=== PATIENT | female | born 1945 | race Caucasian/White ===

== ENCOUNTER → 2019-11-17 | Outpatient (CLI) | payer MEDICARE, BC ==
[~2019-11-17] MED LIST: ALBU6.7H8 INH; ASCO500T8 PO; ASPI-496 PO; ATOR40TA78 PO; CALC1CAP8 PO; CHLO25TA PO; CYCL-259 PO; DILT240C80 PO; DULO60CA7 PO; ESTR1TAB15 PO; FLUT15.87 NS; FOLI0.8T2 PO; GLUC1CAP50 PO; GUAI-103 PO; HYDR-36 PO; HYDR25TA6 PO; LACT1CAP13 PO; LISI40TA PO; METO-95 PO; NABU750T PO; PANT40TA3 PO; POLY17PO5 PO; SIMV20TA19 PO; SPIR50TA4 PO; Vita Fusion PO
[2019-11-17 13:13] LABS: BASOPHILS # (AUTO) 0.02 x10^3/uL (0-0.1); BASOPHILS % (AUTO) 0 % (0-1); EOSINOPHILS # (AUTO) 0.05 x10^3/uL (0-0.4); EOSINOPHILS % (AUTO) 1 % (1-7); LYMPHOCYTES # (AUTO) 1.06 x10^3/uL (1-3.4); LYMPHOCYTES % (AUTO) 17 % (22-44); MD NO; MEAN CORPUSCULAR HEMOGLOBIN 31.3 pg (27.0-34.8); MEAN CORPUSCULAR HGB CONC 33.1 g/dL (32.4-35.8); MEAN CORPUSCULAR VOLUME 94.7 fL (80-100); MEAN PLATELET VOLUME 7.7 fL (7.4-10.4); MONOCYTES # (AUTO) 0.51 x10^3/uL (0.2-0.8); MONOCYTES % (AUTO) 8 % (2-9); NEUTROPHILS # (AUTO) 4.75 x10^3/uL (1.8-6.8); NEUTROPHILS % (AUTO) 74 % (42-75); PLATELET COUNT 181 x10^3/uL (130-400); RED BLOOD COUNT 4.17 x10^6/uL (3.82-5.3); RED CELL DISTRIBUTION WIDTH 13.3 % (9.6-15.2)
[2019-11-17 13:22] LABS: ALANINE AMINOTRANSFERASE 24 U/L (12-78); ALBUMIN 3.8 g/dL (3.4-5.0); ANION GAP 8 mmol/L (5-15); CALCIUM 8.9 mg/dL (8.5-10.1); CHLORIDE 100 mmol/L (98-107)
[2019-11-17 13:24] LABS: ALKALINE PHOSPHATASE 63 U/L (45-117); BILIRUBIN,TOTAL 0.7 mg/dL (0.2-1.0)
== END | disposition home or self-care (01) ==
LOC: STAR 11:57
PROVIDERS: ATTEND Orthopaedic Surgery
DX: Z01.818 Encounter for other preprocedural examination (principal); S72.041D Displaced fracture of base of neck of right femur, subsequent encounter for closed fracture with routine healing; M25.551 Pain in right hip; M25.552 Pain in left hip; M16.12 Unilateral primary osteoarthritis, left hip; M21.751 Unequal limb length (acquired), right femur; Z47.1 Aftercare following joint replacement surgery; M25.561 Pain in right knee; Z96.651 Presence of right artificial knee joint; Z98.890 Other specified postprocedural states; M67.432 Ganglion, left wrist; X58.XXXD Exposure to other specified factors, subsequent encounter
CPT/HCPCS: 36415; 80053; 85025; 87081

== ENCOUNTER 2019-11-23 07:30 | Observation (INO) | payer MEDICARE, BC ==
[~2019-11-23] VITALS: Ht 170.2 cm; Wt 65.3 kg
[~2019-11-23 07:30] MED LIST changes: +EPINEPHRINE 1 MG/ML, 1ML ONE; +KETOROLAC 60 MG/2 ML ONE; +ROPIvacaine/PF 0.2%, 20 ML ONE; +SODIUM CHLORIDE 0.9% 50 ML ONE; +TRANEXAMIC ACID 100 MG/ML, 10ML ONE; +VANCOMYCIN 1,000 MG ONE
[2019-11-23] MEDS ORDERED: FENTANYL PF 250 MCG/5ML ONE (09:27)
[2019-11-23] MEDS ORDERED: MIDAZOLAM 1 MG/ML, 2ML ONE (09:27)
[2019-11-23] MEDS ORDERED: CEFAZOLIN 1,000 MG ONE (09:38)
[2019-11-23] MEDS ORDERED: PROPOFOL 10 MG/ML, 20ML ONE (09:38)
[2019-11-23] MEDS ORDERED: ROCURONIUM 10MG/ML,5ML ONE (09:38)
[2019-11-23] MEDS ORDERED: SUGAMMADEX 200 MG/2 ML IVPush ONE (09:38)
[2019-11-23] MEDS ORDERED: ONDANSETRON 2MG/ML, 2ML ONE (09:38)
[2019-11-23] MEDS ORDERED: LIDOCAINE-MPF 2% ,5ML ONE (09:38)
[2019-11-23] MEDS ORDERED: DEXAMETHASONE 4 MG/ML, 1ML ONE (09:38)
[2019-11-23] MEDS ORDERED: VANCOMYCIN PER PHARMACY MC ONE (10:13)
[2019-11-23 10:25] VITALS: BP 106/72
[2019-11-23] MEDS ORDERED: LACTATED RINGERS 1,000 ML IV STA (10:25)
[2019-11-23] MEDS ORDERED: VANCOMYCIN 1,300 MG in SODIUM CHLORIDE 0.9% 250 ML IV ONE (10:30)
[2019-11-23] MEDS ORDERED: PHENYLEPHRINE 10 MG/ML ONE (11:31)
[2019-11-23] MEDS ORDERED: PROPOFOL 50 ML ONE (11:54)
[2019-11-23] MEDS ORDERED: LACTATED RINGERS 1,000 ML IV SCH (12:00)
[2019-11-23] MEDS ORDERED: MEPERIDINE/PF 50 MG/ML ONE (12:41)
[2019-11-23] MEDS ORDERED: DIAZEPAM 5 MG TABLET PO PRN (13:30)
[2019-11-23] MEDS ORDERED: ONDANSETRON 2MG/ML, 2ML IV PRN (13:30)
[2019-11-23] MEDS ORDERED: ALBUTEROL/IPRATROPIUM 2.5MG/0.5MG, 3 ML NPPB PRN (13:30)
[2019-11-23] MEDS ORDERED: MAGNESIUM HYDROXIDE 8%, 30ML UDC PO PRN (13:30)
[2019-11-23] MEDS ORDERED: HYDROcodone/APAP 7.5-325MG/15ML UDC PO PRN (13:30)
[2019-11-23] MEDS ORDERED: ACETAMINOPHEN 325 MG TABLET PO PRN (13:30)
[2019-11-23] MEDS ORDERED: DEXAMETHASONE 4 MG/ML, 1ML IVPush SCH (13:30)
[2019-11-23] MEDS ORDERED: CYCLOBENZAPRINE 10 MG TABLET PO PRN (13:30)
[2019-11-23] MEDS ORDERED: ONDANSETRON 4 MG TABLET PO PRN (13:30)
[2019-11-23] MEDS ORDERED: HALOPERIDOL 5 MG/ML IV PRN (13:30)
[2019-11-23] MEDS ORDERED: HYDROmorphone 2 MG/ML, 1ML IVPush PRN (13:30)
[2019-11-23] MEDS ORDERED: ALUMINUM/MAG/SIMETHICONE 30 ML UDC PO PRN (13:30)
[2019-11-23] MEDS ORDERED: POLYETHYLENE GLYCOL 17 GM PACKET PO PRN (13:30)
[2019-11-23] MEDS ORDERED: DIPHENHYDRAMINE 25 MG CAPSULE PO PRN (13:30)
[2019-11-23] MEDS ORDERED: MEPERIDINE/PF 25MG/ML,1ML IVPush PRN (13:30)
[2019-11-23] MEDS ORDERED: BISACODYL 10 MG SUPP PR PRN (13:30)
[2019-11-23] MEDS ORDERED: HYDROmorphone 1 MG/ML, 1ML INJ IVPush PRN (13:30)
[2019-11-23] MEDS ORDERED: SENNA/DOCUSATE TABLET PO PRN (13:30)
[2019-11-23] MEDS ORDERED: hydrALAzine 20 MG/ML, 1ML IV PRN (13:30)
[2019-11-23] MEDS ORDERED: PROMETHAZINE 12.5 MG SUPP PR PRN (13:30)
[2019-11-23] MEDS ORDERED: PSYLLIUM PACKET PO PRN (13:30)
[2019-11-23] MEDS ORDERED: FENTANYL PF 100 MCG/2ML ONE (13:51)
[2019-11-23] MEDS ORDERED: HYDROcodone/APAP 7.5-325MG/15ML UDC ONE (13:52)
[2019-11-23] MEDS ORDERED: TRANEXAMIC ACID 1,000 MG in SODIUM CHLORIDE 0.9% 100 ML IVPB ONE (14:00)
[2019-11-23] MEDS: FENTANYL PF 100 MCG/2ML IV PRN ×3 (14:03→14:34)
[2019-11-23] MEDS: D5%-0.45% NACL 1,000 ML IV SCH (15:38)
[2019-11-23] MEDS: ACETAMINOPHEN 500 MG TABLET PO SCH ×2 (15:38→21:30)
[2019-11-23] MEDS: FERROUS SULFATE 325 MG TABLET PO SCH (18:13)
[2019-11-23] MEDS: CALCIUM/VITAMIN D3 250-125 TABLET PO SCH (18:13)
[2019-11-23] MEDS: ASPIRIN 81 MG TABLET EC PO SCH (19:02)
[2019-11-23 19:44] VITALS: BP 93/59
[2019-11-23] MEDS: KETOROLAC 30 MG/1 ML IV SCH (19:57)
[2019-11-23] MEDS: CEFAZOLIN PMX 2GM/50ML 50 ML IVPB SCH (19:58)
[2019-11-23] MEDS: DOCUSATE 100 MG CAPSULE PO SCH (19:58)
[2019-11-23] MEDS: HYDROcodone/APAP 10/325 MG TABLET PO PRN (20:21)
[2019-11-23] MEDS ORDERED: ATORVASTATIN 40 MG TABLET PO SCH (21:00)
[2019-11-23 23:27] VITALS: BP 92/58
[2019-11-24] MEDS: HYDROcodone/APAP 10/325 MG TABLET PO PRN ×3 (00:38→12:40)
[2019-11-24] MEDS: ACETAMINOPHEN 500 MG TABLET PO SCH ×2 (03:30→08:52)
[2019-11-24 03:51] VITALS: BP 95/53
[2019-11-24] MEDS: KETOROLAC 30 MG/1 ML IV SCH ×2 (04:19→12:00)
[2019-11-24] MEDS: CEFAZOLIN PMX 2GM/50ML 50 ML IVPB SCH (04:19)
[2019-11-24] MEDS: D5%-0.45% NACL 1,000 ML IV SCH (04:50)
[2019-11-24] MEDS: ASPIRIN 81 MG TABLET EC PO SCH (06:04)
[2019-11-24 07:38] VITALS: BP 77/49
[2019-11-24 08:50] VITALS: BP 86/51
[2019-11-24] MEDS: FERROUS SULFATE 325 MG TABLET PO SCH (08:51)
[2019-11-24] MEDS: DOCUSATE 100 MG CAPSULE PO SCH (08:53)
[2019-11-24] MEDS: CALCIUM/VITAMIN D3 250-125 TABLET PO SCH ×2 (08:53→12:00)
[2019-11-24] MEDS ORDERED: LISINOPRIL 40 MG TABLET PO SCH (09:00)
[2019-11-24] MEDS ORDERED: PANTOPROZOLE 40MG TABLET PO SCH (09:00)
[2019-11-24] MEDS ORDERED: DULOXETINE 30 MG CAPSULE.DR PO SCH (09:00)
[2019-11-24] MEDS ORDERED: METOPROLOL SUCCINATE 100 MG TAB.ER.24H PO SCH (09:00)
[2019-11-24] MEDS ORDERED: MULTIVITAMINS/MINERALS TABLET PO SCH (09:00)
[2019-11-24] MEDS ORDERED: ASCORBIC ACID 500 MG TABLET PO SCH (09:00)
[2019-11-24] MEDS ORDERED: SPIRONOLACTONE 50 MG TABLET PO SCH (09:00)
[2019-11-24 10:58] VITALS: BP 94/60
[2019-11-24 11:51] VITALS: BP 107/70
== END 2019-11-24 13:00 | disposition home or self-care (01) ==
LOC: EDSTATUS 07:30 → INTOOBSV 09:47 → ORIP 09:47 → 4NE 14:57 → DCLOUNGE 11-24 12:48
PROVIDERS: ADMIT Orthopaedic Surgery; ATTEND Orthopaedic Surgery
DX: M16.11 Unilateral primary osteoarthritis, right hip (principal); M87.9 Osteonecrosis, unspecified; M84.451A Pathological fracture, right femur, initial encounter for fracture; M48.00 Spinal stenosis, site unspecified; K21.9 Gastro-esophageal reflux disease without esophagitis; I10 Essential (primary) hypertension; J44.9 Chronic obstructive pulmonary disease, unspecified; F17.200 Nicotine dependence, unspecified, uncomplicated; Z98.890 Other specified postprocedural states; Z79.899 Other long term (current) drug therapy
CPT/HCPCS: 20680; 27130; 36415; 72170; 85014; 85018; 86850; 86900; 96365; 96366; 96375; 96376; 97162; 97166; C1713; C1776; G0378; J0171; J0690; J1100; J1885; J2175; J2250; J2370; J2405; J2704; J2795; J3010; J3370; J3490; J7050; J7120

== ENCOUNTER → 2020-04-14 | Outpatient (CLI) | payer MEDICARE, BC ==
[~2020-04-14] MED LIST changes: -EPINEPHRINE 1 MG/ML, 1ML ONE; +HYDR-3246 PO; -HYDR-36 PO; -KETOROLAC 60 MG/2 ML ONE; +PRIM50TA34 PO; -ROPIvacaine/PF 0.2%, 20 ML ONE; -SODIUM CHLORIDE 0.9% 50 ML ONE; -TRANEXAMIC ACID 100 MG/ML, 10ML ONE; -VANCOMYCIN 1,000 MG ONE
[2020-04-14 14:02] LABS: BASOPHILS # (AUTO) 0.01 x10^3/uL (0-0.1); BASOPHILS % (AUTO) 0 % (0-1); EOSINOPHILS # (AUTO) 0.13 x10^3/uL (0-0.4); EOSINOPHILS % (AUTO) 1 % (1-7); LYMPHOCYTES # (AUTO) 1.18 x10^3/uL (1-3.4); LYMPHOCYTES % (AUTO) 9 % (22-44); MD NO; MEAN CORPUSCULAR HEMOGLOBIN 30.2 pg (27.0-34.8); MEAN CORPUSCULAR HGB CONC 33.3 g/dL (32.4-35.8); MEAN CORPUSCULAR VOLUME 90.7 fL (80-100); MEAN PLATELET VOLUME 6.9 fL (7.4-10.4); MONOCYTES # (AUTO) 0.65 x10^3/uL (0.2-0.8); MONOCYTES % (AUTO) 5 % (2-9); NEUTROPHILS % (AUTO) 85 % (42-75); PLATELET COUNT 269 x10^3/uL (130-400); RED CELL DISTRIBUTION WIDTH 14.5 % (9.6-15.2)
[2020-04-14 14:11] LABS: ALANINE AMINOTRANSFERASE 31 U/L (12-78); ALBUMIN 4.3 g/dL (3.4-5.0); ANION GAP 7 mmol/L (5-15); CALCIUM 9.5 mg/dL (8.5-10.1); CHLORIDE 94 mmol/L (98-107); CREATININE 0.82 mg/dL (0.55-1.02)
[2020-04-14 14:13] LABS: MICROSCOPIC INDICATED
[2020-04-14 14:13] LABS: ALKALINE PHOSPHATASE 76 U/L (45-117); BILIRUBIN,TOTAL 0.6 mg/dL (0.2-1.0); TOTAL PROTEIN 7.7 g/dL (6.4-8.2)
[2020-04-14 14:17] LABS: INTERNATIONAL NORMALIZED RATIO 0.94 (0.93-1.1)
== END | disposition home or self-care (01) ==
LOC: STAR 12:32
PROVIDERS: ATTEND Neurological Surgery
DX: Z01.818 Encounter for other preprocedural examination (principal); M48.061 Spinal stenosis, lumbar region without neurogenic claudication; I45.2 Bifascicular block
CPT/HCPCS: 36415; 71046; 80053; 81001; 85025; 85610; 85730; 87086; 93005

== ENCOUNTER → 2020-12-06 | Outpatient (CLI) | payer MEDICARE, BC ==
[~2020-12-06] MED LIST changes: +CEPH-368 PO; -CYCL-259 PO; +CYCL10TA2 PO; -FOLI0.8T2 PO; +FOLI0.8T5 PO; -HYDR-3246 PO; +HYDR-3248 PO; -LISI40TA PO; +LISI40TA9 PO; -NABU750T PO; +NABU750T7 PO
== END | disposition home or self-care (01) ==
LOC: RAD 09:32
PROVIDERS: ATTEND Psychiatry & Neurology Neurology
DX: R13.12 Dysphagia, oropharyngeal phase (principal); G20 Parkinson's disease; R47.1 Dysarthria and anarthria
CPT/HCPCS: 74230